=== PATIENT | male | born 1980 ===

== ENCOUNTER 2016-10-08 18:32 | Inpatient (IN) | payer MEDICAID, OTHER ==
[2016-10-08 18:49] VITALS: BMI 27.8
[2016-10-08] MEDS ORDERED: Naloxone 0.4 mg/ml Inj (Adult) IV ONE (19:15)
[2016-10-08] MEDS ORDERED: Sodium Chloride 0.9% 1,000 ML IV ONE (19:15)
[2016-10-08 19:47] LABS: BASO # 0.1 K/uL (0.0-0.2); BASO % 0.5 % (0.0-2.0); EOS # 0.2 K/uL (0.0-0.7); EOS % 1.8 % (0.0-4.0); HEMATOCRIT 40.1 % (35.0-51.0); LYMPH # 2.4 K/uL (1.0-4.3); LYMPH % 23.5 % (20.0-40.0); MEAN CELL VOLUME 89.2 fL (80.0-94.0); MEAN CORPUSCULAR HEMOGLOBIN 29.7 pg (27.0-31.0); MEAN CORPUSCULAR HGB CONC 33.3 g/dL (33.0-37.0); MEAN PLATELET VOLUME 9.2 fL (7.2-11.7); MONO # 0.7 K/uL (0.0-0.8); MONO % 6.8 % (0.0-10.0); RED CELL DISTRIBUTION WIDTH 12.3 % (11.5-14.5); WHITE BLOOD COUNT 10.2 K/uL (4.8-10.8)
[2016-10-08 19:55] LABS: CHLORIDE 93 mmol/L (98-107); SODIUM 134 mmol/L (132-148)
[2016-10-08 19:56] LABS: POTASSIUM 3.6 mmol/L (3.6-5.2)
[2016-10-08 19:57] LABS: GFR AFRICAN-AMERICAN > 60
[2016-10-08 19:58] LABS: ALB/GLOB RATIO 1.4 (1.0-2.1); ALKALINE PHOSPHATASE 70 U/L (38-126); ALT/SGPT 33 U/L (21-72); AST/SGOT 26 U/L (17-59); BILIRUBIN,TOTAL 0.6 mg/dL (0.2-1.3); BLOOD UREA NITROGEN 10 mg/dL (9-20); CALCIUM 8.4 mg/dl (8.6-10.4); CARBON DIOXIDE 32 mmol/L (22-30); GLUCOSE,RANDOM 109 mg/dL (75-110); TOTAL PROTEIN 7.6 g/dL (6.3-8.3)
[2016-10-08 19:59] LABS: ALCOHOL SERUM < 10 mg/dl (0-10)
--- NOTE | 2016-10-08 21:54 | C.PDOC ---
Time Seen by Provider: 10/08/16 19:03 Chief Complaint (Nursing): Psychiatric Evaluation History Per: Patient, Family (Fiance) Onset/Duration Of Symptoms: Days (4) Current Symptoms Are (Timing): Still Present Suicide/Self Injury Attempted (Context): Ingestion Ingestion Of Substance: Percocet. Flexeril. Xanax. Heroin. Modifying Factor(s): Narcotics Severity: Moderate Associated Symptoms: Depression Additional History Per: Prior Records, Girlfriend Past Medical History Reviewed: Historical Data, Nursing Documentation, Vital Signs Vital Signs: Last Vital Signs Temp 98.8 F 10/09/16 00:38 Pulse 88 10/09/16 00:38 Resp 20 10/09/16 00:38 BP 151/85 H 10/09/16 00:38 Pulse Ox 99 10/09/16 00:38 - Medical History PMH: Arthritis, Asthma, Bipolar Disorder - [employer] Procedures DETOXIFICATION SERVICES FOR SUBSTANCE ABUSE TREATMENT (04/22/16) Family History: States: Unknown Family Hx - Social History Hx Alcohol Use: No Hx Substance Use: Yes (Snorts Heroin.) - Immunization History Hx Tetanus Toxoid Vaccination: Yes Hx Influenza Vaccination: No Hx Pneumococcal Vaccination: No Review Of Systems Except As Marked, All Systems Reviewed And Found Negative. Constitutional: Negative for: Fever Cardiovascular: Negative for: Chest Pain Respiratory: Negative for: Shortness of Breath Gastrointestinal: Positive for: Nausea, Vomiting (?) Musculoskeletal: Negative for: Neck Pain Skin: Negative for: Rash Neurological: Negative for: Weakness, Numbness, Seizures Physical Exam - Physical Exam Appears: No Acute Distress, Other (Appears drowsy and intoxicated) Skin: Normal Color, Warm, Dry, No Rash Head: Atraumatic, Normacephalic Eye(s): bilateral: PERRL (but small), EOMI Neck: Normal ROM, No Midline Cervical Tenderness, No Step Off Deformity, Supple Chest: Symmetrical, No Deformity Cardiovascular: Rhythm Regular Respiratory: Normal Breath Sounds, No Accessory Muscle Use Gastrointestinal/Abdominal: Soft Extremity: Normal ROM, No Deformity Neurological/Psych: Eyes Open With Command, Slow To Respond With Command Gait: Unable To Assess ED Course And Treatment - Laboratory Results Result Diagrams: 10/08/16 19:40 10/08/16 19:40 Lab Interpretation: No Acute Changes ECG: Interpreted By Me, Viewed By Me ECG Rhythm: Sinus Rhythm, Nonspecific Changes ECG Interpretation: No Acute Changes Rate From EC O2 Sat by Pulse Oximetry: 99 Pulse Ox Interpretation: Normal - CT Scan/US CT head Other Rad Studies (CT/US): Read By Radiologist, Radiology Report Reviewed CT/US Interpretation: No acute findings. Progress Note: Pt d/w Tori at [facility]. States that pt can be medically cleared for psychiatric admission. Reassessment Condition: Improved Disposition Counseled Patient/Family Regarding: Studies Performed, Diagnosis - Disposition Disposition: HOSPITALIZED Disposition Time: 00:46 Condition: STABLE - Clinical Impression Clinical Impression: Depression, Drug abuse Decision To Admit - Pt Status Changed To: Hospital Disposition Of: Inpatient - Admit Certification Admit to Inpatient:: After my assessment, the patient will require hospitalization for at least two midnights. This is because of the severity of symptoms shown, intensity of services needed, and/or the medical risk in this patient being treated as an outpatient. - InPatient: Physician Admission Certification: I certify that this patient requires 2 or more midnights of care for the following reason:: Psych - . Bed Request Type: Psychiatry Admitting Physician: Remberto Klein Patient Diagnosis: Depression, Drug abuse
[2016-10-08 23:16] LABS: RBC URINE 2 /hpf (0-3); URINE BILIRUBIN NEGATIVE (NEGATIVE); URINE BLOOD NEGATIVE (NEGATIVE); URINE COLOR Yellow (YELLOW); URINE GLUCOSE (UA) NORMAL (Normal); URINE KETONE NEGATIVE (NEGATIVE); URINE LEUKOCYTE ESTERASE NEG Leu/uL (Negative); URINE PROTEIN NEGATIVE (NEGATIVE); URINE UROBILINOGEN NORMAL mg/dL (0.2-1.0); WBC URINE 1 /hpf (0-5)
[2016-10-09 01:38] VITALS: TEMP 98.1; O2SAT 98
--- NOTE | 2016-10-09 09:00 | CT ---
PROCEDURE: CT HEAD WITHOUT CONTRAST. HISTORY: AMS COMPARISON: None available. TECHNIQUE: Axial computed tomography images were obtained through the head/brain without intravenous contrast. Radiation dose: Total exam DLP = 931.30 mGy-cm. This CT exam was performed using one or more of the following dose reduction techniques: Automated exposure control, adjustment of the mA and/or kV according to patient size, and/or use of iterative reconstruction technique. FINDINGS: HEMORRHAGE: No intracranial hemorrhage. BRAIN: No mass effect or edema. No atrophy or chronic microvascular ischemic changes. VENTRICLES: Unremarkable. No hydrocephalus. CALVARIUM: Unremarkable. PARANASAL SINUSES: Mild chronic ethmoid sinusitis. MASTOID AIR CELLS: Unremarkable as visualized. No inflammatory changes. OTHER FINDINGS: None. IMPRESSION: No intracranial mass, hemorrhage or evidence of acute infarct. Mild chronic ethmoid sinusitis. Preliminary interpretation of this examination was reported by [facility] at 8:28 p.m. on 10/08/2016. There is concurrence of this report with the preliminary interpretation.
[2016-10-09] MEDS ORDERED: Benzocaine/Menthol (Cepacol) Lozenge PO PRN (10:34)
--- NOTE | 2016-10-09 10:38 | PCM.PSYCH ---
Initial Psychiatric Evaluation - Initial Psychiatric Evaluation Type of Admission: Voluntary Legal Status: Capacity Chief Complaint (in patient's own words): I came in to get help History of Present Illness and Precipitating Events: This is a 35 yo man, who currently lives alone and works full-time, BIB "girlfriend" reportedly secondary to "unknown substance use" and recent thoughts of suicide. Pt reports the following: "I took heroin, Xanax, Percocet, and apparently a few other opioids;" I'm very depressed;" I figured that taking all of that stuff would put me away;" Maybe just ;" Pt was ambiguous in regards to actually having suicide intent, describing the above odd as a way of "escaping" from his problems but also as a way of "giving your life away". Pt reports of being depressed for the past month. Patient reports that he completed a detox at [facility] last year. As per the patient he relapsed on heroin and, xanax and percoects 3 months go. Patient reports of using 20 bags of heroin on a daily basis along with 4-6 mg of Xanax and some Percocets. Yesterday he abused 20 bags with 4 mg of Xanax, became increasingly depressed and developed suicidal ideation so came to the hospital. Patient reports depressed mood and at times feelings of hopelessness and helplessness. He reports recent stresses like, younger brother recently in a MVA; And several financial stressors: unpaid bills and difficulty supporting his children financially; Pt reports feelings of anhedonia, stating: "It really has me bummed out;" It's overwhelming"; Pt denied having a prior hx of suicide attempts, but was treated psychiatrically on an outpt basis at the age of "[age]" following the divorce of his parents; Pt was placed in a "mcc" at age 11 secondary to run away behavior; Pt has minimal contact with his family and states he currently lives alone; He denies any manic or psychotic symptoms. he reports withdrawal symptom nausea, joint pains, abdominal cramps, diarrhea, sweating, headaches and anxiety. past medical history Hypertension Current Medications: Active Medications Generic Name Dose Route Start Last Admin Trade Name Freq PRN Reason Stop Dose Admin Acetaminophen 650 mg 10/09/16 10:34 Tylenol 325mg Tab PO Q4H PRN Fever greater than 101 F Benzocaine/Menthol 1 cruzito 10/09/16 10:34 Cepacol Sore Throat PO QID PRN Sore Throat Clonidine HCl 0.1 mg 10/09/16 10:34 Catapres PO Q8 PRN COWS Score More or Equal to 5 Loperamide HCl 2 mg 10/09/16 10:34 Imodium PO Q8 PRN Diarrhea Methadone HCl 20 mg 10/09/16 10:36 Methadone PO 10/09/16 10:37 STAT STA Nicotine 1 patch 10/09/16 10:45 Nicoderm Cq TD DAILY YUMIKO Ondansetron HCl 4 mg 10/09/16 10:34 Zofran Tab PO Q8 PRN Nausea/Vomiting Pseudoephedrine HCl 60 mg 10/09/16 10:34 Sudafed Tab PO QID PRN Nasal/Sinus Congestion Past Psychiatric History - Past Psychiatric History Previous Treatment History: Inpatient Pertinent Medical Hx (Current Medical&Sleep Prob, Allergies): Allergies Allergy/AdvReac Type Severity Reaction Status Date / Time Penicillins Allergy Verified 04/22/16 19:11 Gabapentin [Neurontin] 300 mg PO TID #90 cap 04/26/16 traZODone [Desyrel] 100 mg PO HS PRN #30 tab 04/26/16 Xanax 1 tab PO DAILY 10/08/16 oxyCODONE/Acetaminophen [Percocet 5/325 mg Tab] 1 tab PO TID 10/08/16 Review of Systems - Review of Systems All systems: reviewed and no additional remarkable complaints except - Psychiatric Psychiatric: Anxiety, Behavioral Changes, Depression, Irritability, Suicidal Ideation Mental Status Examination - Personal Presentation Personal Presentation: Looks stated age - Affect Affect: Constricted, Depressed - Motor Activity Motor Activity: Calm - Reliability in Providing Information Reliability in Providing Information: Good - Speech Speech: Organized - Mood Mood: Depressed, Anxious - Formal Thought Process Formal Thought Process: No Impairment - Obsessions/Compulsions Obsessions: No Compulsions: No - Cognitive Functions Orientation: Person, Place, Situation, Time Sensorium: Alert Attention/Concentration: Attentive Abstract Thinking: [place] Estimate of Intelligence: Below average Judgement: Imparied, as evidence by: Poor judgement, Imparied, as evidence by: Lack of insight into illness - Risk Risk: Suicidal, Withdrawal, Diminished functioning - Strength & Assets Inventory Strength & Assets Inventory: Cooperative DSM 5 DX - DSM 5 DSM 5 Diagnosis: Major depressive disorder single episode severe without psychotic features Opioid use disorder severe Opioid withdrawal Sedative/hypnotic use disorder severe Sedative/hypnotic withdrawal uncomplicated Nicotine use disorder severe - Recommended/Plan of Treatment Treatment Recommendations and Plan of Treatment: Major depressive disorder single episode severe without psychotic features CBT Psychoeducation Supportive therapy, group therapy, individual therapy Zoloft 25 mg by mouth daily Neurontin 100 mg by mouth 3 times a day Trazodone 50 mg by mouth daily at bedtime Opioid use disorder severe CBT Psychoeducation Supportive therapy, individual therapy Use FL for abstinence Opioid withdrawal CBT Psychoeducation Supportive therapy, individual therapy Clonidine when necessary Methadone taper Sedative/hypnotic use disorder severe CBT Psychoeducation Supportive therapy, individual therapy Use FL for abstinence Sedative/hypnotic withdrawal uncomplicated CBT Psychoeducation Supportive therapy, individual therapy Ativan when necessary Nicotine use disorder severe nicotine patch Hypertension monitor signs and symptoms - Smoking Cessation Smoking Cessation Initiated: Yes
[2016-10-10 09:09] VITALS: BP 110/69; PULSE 77; RESP 18
--- NOTE | 2016-10-10 10:05 | PCM.PYCHDC ---
Mental Status Examination - Mental Status Examination Orientation: Person, Place, Situation, Time Memory: Intact Mood: Neutral Affect: Constricted Speech: Soft Attention: WNL Concentration: WNL Association: WNL Fund of Knowledge: WNL Formal Thought Process: No Impairment Description of patient's judgement and insight: good, fair Psychotic Thoughts and Behaviors: denies any AVH Suicidal Ideation: No Current Homicidal Ideation?: No Discharge Summary - Discharge Note Reason for Hospitalization: This is a 35 yo man, who currently lives alone and works full-time, BIB "girlfriend" reportedly secondary to "unknown substance use" and recent thoughts of suicide. Pt reports the following: "I took heroin, Xanax, Percocet, and apparently a few other opioids;" I'm very depressed;" I figured that taking all of that stuff would put me away;" Maybe just ;" Pt was ambiguous in regards to actually having suicide intent, describing the above odd as a way of "escaping" from his problems but also as a way of "giving your life away". Pt reports of being depressed for the past month. Patient reports that he completed a detox at [facility] last year. As per the patient he relapsed on heroin and, xanax and percoects 3 months go. Patient reports of using 20 bags of heroin on a daily basis along with 4-6 mg of Xanax and some Percocets. Yesterday he abused 20 bags with 4 mg of Xanax, became increasingly depressed and developed suicidal ideation so came to the hospital. Patient reports depressed mood and at times feelings of hopelessness and helplessness. He reports recent stresses like, younger brother recently in a MVA; And several financial stressors: unpaid bills and difficulty supporting his children financially; Pt reports feelings of anhedonia, stating: "It really has me bummed out;" It's overwhelming"; Pt denied having a prior hx of suicide attempts, but was treated psychiatrically on an outpt basis at the age of "6 or 7" following the divorce of his parents; Pt was placed in a "half-way" at age 11 secondary to run away behavior; Pt has minimal contact with his family and states he currently lives alone; He denies any manic or psychotic symptoms. he reports withdrawal symptom nausea, joint pains, abdominal cramps, diarrhea, sweating, headaches and anxiety. Consultations:: List each consultation separately and include: 1. Reason for request. 2. Findings. 3. Follow-up Summary of Hospital Course include:: 1. Description of specific treatment plan utilized for patients during their course of treatmen. 2. Summarize the time- course for resolution of acute symptoms and/or regressed behaviors. 3. Describe issues identified and worked on during hospitalization. 4. Describe medication utilized. 5. Describe medical problems identified and treated. 6. Reassessment of suicide risk Summary of Hospital Course: During the course of his stay, patient (pt) started progressively improving and he no longer remained irritable, depressed, and suicidal. His mood was improved and he started attending groups and meetings and started socializing. He withdrawal symptoms were getting better but then he received a phone call from brother that he is in process of eviction from the apartment because of non payment of rent. Also, he didnt inform his boss that he is in the hospital so he can lose his job. Pt requested to leave today. Patient denied any feelings of hopelessness, helplessness, and worthlessness, denied any problem with the sleep or appetite, denied suicidal ideation or homicidal ideation. Pt denied any auditory or visual hallucinations. Some changes were made in his current medications and patient was discharged on following medications. He tolerated these medications very well and denied any side effects. s - Final Diagnosis (DSM 5) Condition upon Discharge: STABLE DSM 5: Major depressive disorder single episode severe without psychotic features Opioid use disorder severe Opioid withdrawal Sedative/hypnotic use disorder severe Sedative/hypnotic withdrawal uncomplicated Nicotine use disorder severe Disposition: HOME/ ROUTINE Follow-up Treatment Plan: Education: Pt was educated and counseled about the risks and benefits of taking and not taking medications. Pt was educated and counseled about the risks of drinking and abusing drugs. Pt was educated and counseled to go to the ER or call 911 if pt develop suicidal ideation or homicidal ideation, worsening of symptoms or severe side effects of the meds. Prescriptions/Medication Reconciliation: Gabapentin [Neurontin] 100 mg PO TID 14 Days Sertraline [Zoloft] 25 mg PO DAILY 14 Days - Smoking Cessation Smoking Cessation Medication prescribed: No - Antipsychotic Medications Pt discharged on 2 or more routine antipsychotic medications: No
--- NOTE | 2016-10-15 19:21 | CARD ---
APPROVED REPORT EKG Measurement Heart [id number] <Conclusion> Normal sinus rhythm Rightward axis ST & T wave abnormality, consider inferior ischemia Abnormal ECG
== END 2016-10-10 10:20 | disposition home or self-care (01) | DRG 430 ==
LOC: C.ER 18:32 → C.5E 10-09 00:51
PROC: HZ52ZZZ Individual Psychotherapy for Substance Abuse Treatment, Cognitive-Behavioral (ICD-10-PCS; principal; 2016-10-09)
PROC: HZ2ZZZZ Detoxification Services for Substance Abuse Treatment (ICD-10-PCS; 2016-10-09)
PROC: HZ59ZZZ Individual Psychotherapy for Substance Abuse Treatment, Supportive (ICD-10-PCS; 2016-10-09)
DX: F32.2 Major depressive disorder, single episode, severe without psychotic features (principal); I10 Essential (primary) hypertension; F11.23 Opioid dependence with withdrawal; F13.239 Sedative, hypnotic or anxiolytic dependence with withdrawal, unspecified; J45.909 Unspecified asthma, uncomplicated; F17.210 Nicotine dependence, cigarettes, uncomplicated

== ENCOUNTER 2017-01-14 08:10 | Inpatient (IN) | payer MEDICAID, OTHER ==
[2017-01-14 08:14] VITALS: BMI 25.7
[2017-01-14 08:54] LABS: BASO # 0.1 K/uL (0.0-0.2); BASO % 0.7 % (0.0-2.0); EOS # 0.1 K/uL (0.0-0.7); HEMATOCRIT 41.7 % (35.0-51.0); LYMPH # 1.8 K/uL (1.0-4.3); LYMPH % 15.2 % (20.0-40.0); MEAN CELL VOLUME 88.3 fL (80.0-94.0); MEAN CORPUSCULAR HEMOGLOBIN 29.6 pg (27.0-31.0); MEAN CORPUSCULAR HGB CONC 33.5 g/dL (33.0-37.0); MONO # 0.5 K/uL (0.0-0.8); MONO % 4.5 % (0.0-10.0); RED CELL DISTRIBUTION WIDTH 12.8 % (11.5-14.5); WHITE BLOOD COUNT 11.7 K/uL (4.8-10.8)
[2017-01-14 09:08] LABS: CHLORIDE 104 mmol/L (98-107)
[2017-01-14 09:09] LABS: POTASSIUM 3.6 mmol/L (3.6-5.2); SODIUM 142 mmol/L (132-148)
[2017-01-14 09:11] LABS: BILIRUBIN,TOTAL 0.8 mg/dL (0.2-1.3); GFR AFRICAN-AMERICAN > 60
[2017-01-14 09:12] LABS: ALB/GLOB RATIO 1.3 (1.0-2.1); ALCOHOL SERUM < 10 mg/dl (0-10); ALKALINE PHOSPHATASE 83 U/L (38-126); ALT/SGPT 32 U/L (21-72); AST/SGOT 20 U/L (17-59); BLOOD UREA NITROGEN 13 mg/dL (9-20); CALCIUM 9.4 mg/dl (8.6-10.4); CARBON DIOXIDE 26 mmol/L (22-30); GLUCOSE,RANDOM 120 mg/dL (75-110); TOTAL PROTEIN 7.3 g/dL (6.3-8.3)
--- NOTE | 2017-01-14 09:12 | C.PDOC ---
History Of Present Illness Patient is a 36 y/o male presents to the ED requesting heroin detox. Notes using heroin intranasally. Last use was yesterday. Otherwise, denies any SI, HI , chest pain, shortness of breath, headache, fever, chills, cough, nausea, vomiting, diarrhea, abdominal pain, dizziness, or any other physical complaints at this time. Time Seen by Provider: 01/14/17 08:33 Chief Complaint (Nursing): Substance Abuse History Per: Patient History/Exam Limitations: no limitations Onset/Duration Of Symptoms: Gradual Current Symptoms Are (Timing): Still Present Suicide/Self Injury Attempted (Context): None Modifying Factor(s): Other (heroin) Severity: None Pain Scale Rating Of: 0 Associated Symptoms: denies: Suicidal Thoughts, Suicidal Plan Involuntary Hold By: None Recent travel outside of the [place]: No Additional History Per: Patient Past Medical History Reviewed: Historical Data, Nursing Documentation, Vital Signs Vital Signs: Last Vital Signs Temp 98.4 F 01/14/17 08:14 Pulse 97 H 01/14/17 08:14 Resp 18 01/14/17 08:14 BP 106/75 01/14/17 08:14 Pulse Ox 98 01/14/17 09:14 - Medical History PMH: Arthritis, Asthma, Bipolar Disorder, Diabetes, HTN Denies: Hepatitis, HIV, Seizures, Sexually Transmitted Disease - [facility] Procedures DETOXIFICATION SERVICES FOR SUBSTANCE ABUSE TREATMENT (10/09/16) INDIV PSYCHOTHERAPY FOR SUBSTANCE ABUSE TREATMENT, SUPPORT (10/09/16) INDIV PSYCHOTHERAPY FOR SUBSTANCE ABUSE, COGNITIV BEHAVIORAL (10/09/16) Family History: States: Unknown Family Hx - Social History Hx Alcohol Use: Yes Hx Substance Use: Yes - Immunization History Hx Tetanus Toxoid Vaccination: Yes Hx Influenza Vaccination: No Hx Pneumococcal Vaccination: No Review Of Systems Except As Marked, All Systems Reviewed And Found Negative. Constitutional: Negative for: Fever, Chills Cardiovascular: Negative for: Chest Pain, Palpitations Respiratory: Negative for: Cough, Shortness of Breath Gastrointestinal: Negative for: Nausea, Vomiting, Abdominal Pain Musculoskeletal: Negative for: Neck Pain, Back Pain Skin: Negative for: Rash, Bruising Neurological: Negative for: Headache, Dizziness Psych: Negative for: Suicidal ideation Physical Exam - Physical Exam Additional Physical Exam Comments: Constitutional: No acute distress. Head: Normocephalic. Atraumatic. Eyes: PERRL. ENT: Moist mucous membranes. Neck: Supple. Cardiovascular: Regular rate. Radial pulses 2+ bilaterally. Chest: No tenderness. Respiratory: Clear to auscultation bilaterally. GI: Soft. Nontender. Nondistended. Back: No CVA tenderness. Musculoskeletal: No tenderness or swelling of extremities. Skin: No rash. Neurologic: Alert, no focal deficit. ED Course And Treatment - Laboratory Results Result Diagrams: 01/14/17 08:47 01/14/17 08:47 O2 Sat by Pulse Oximetry: 98 (RA) Pulse Ox Interpretation: Normal Medical Decision Making Medical Decision Making: Plan: * Blood work * Urinalysis * Crisis evaluation Progress note: On re-evaluation, patient is resting comfortably, no acute distress. No physical complaints at this time. Pending crisis evaluation. Medically cleared and accepted for Detox. Disposition Discussed With Dr.: Sanjana Marino Doctor Will See Patient In The: Hospital - Disposition Disposition: HOSPITALIZED Disposition Time: 11:00 Condition: FAIR Forms: [employer] [facility] (Swazi) - Clinical Impression Clinical Impression: Opioid use disorder, severe, dependence - Scribe Statement The provider has reviewed the documentation as recorded by the Aureliano Barros Provider Attestation: All medical record entries made by the Aureliano were at my direction and personally dictated by me. I have reviewed the chart and agree that the record accurately reflects my personal performance of the history, physical exam, medical decision making, and the department course for this patient. I have also personally directed, reviewed, and agree with the discharge instructions and disposition.
[2017-01-14 09:19] LABS: RBC URINE 2 /hpf (0-3); URINE BILIRUBIN NEGATIVE (NEGATIVE); URINE BLOOD NEGATIVE (NEGATIVE); URINE COLOR Yellow (YELLOW); URINE GLUCOSE (UA) NORMAL (Normal); URINE KETONE NEGATIVE (NEGATIVE); URINE LEUKOCYTE ESTERASE NEG Leu/uL (Negative); URINE PROTEIN NEGATIVE (NEGATIVE); URINE UROBILINOGEN NORMAL mg/dL (0.2-1.0); WBC URINE < 1 /hpf (0-5)
[2017-01-14] MEDS ORDERED: Buprenorphine Hydrochloride 2 mg SL ONE ×2 (12:55→14:00)
[2017-01-14] MEDS ORDERED: Aluminum Hydroxide/Magnesium Hydroxide Susp (30 mL) PO PRN (12:55)
--- NOTE | 2017-01-14 12:57 | PCM.PSYCH ---
Initial Psychiatric Evaluation - Initial Psychiatric Evaluation Type of Admission: Voluntary Legal Status: Capacity Chief Complaint (in patient's own words): "I need detox" History of Present Illness and Precipitating Events: Pt is a 36 y.o. male admitted for heroin use. Pt reports he relapsed and started using 10-15 bags of heroin per day intranasally for the last 5 months, last use yesterday at 10 am and used 5 bags. Pt denies SI, HI. Urine drug screen was positive for opiates, benzodiazepines and cannabinoids. Pt reports last use of Xanax 5 days ago. Pt denies fall and seizure risk. Psychiatric Hx: Bipolar d/o (no meds) Other Medical Hx: Arthritis, Asthma, Diabetes, HTN Social Hx: Alcohol and Substance abuse Famiy Psych Hx: Unknown Current Medications: Active Medications Generic Name Dose Route Start Last Admin Trade Name Freq PRN Reason Stop Dose Admin Al Hydrox/Mg Hydrox/Simethicone 30 ml 01/14/17 12:55 Maalox 30 Ml PO TID PRN Indigestion / Heartburn Buprenorphine HCl 2 mg 01/14/17 12:55 Subutex SL 01/14/17 12:56 ONCE ONE Clonidine HCl 0.1 mg 01/14/17 12:55 Catapres PO Q8 PRN COWS Score More or Equal to 5 Loperamide HCl 2 mg 01/14/17 12:55 Imodium PO Q8 PRN Diarrhea Ondansetron HCl 4 mg 01/14/17 12:55 Zofran Tab PO Q8 PRN Nausea/Vomiting Past Psychiatric History - Past Psychiatric History Pertinent Medical Hx (Current Medical&Sleep Prob, Allergies): Allergies Allergy/AdvReac Type Severity Reaction Status Date / Time peanut Allergy Verified 01/14/17 08:13 Penicillins Allergy Verified 01/14/17 08:12 seafood Allergy Uncoded 01/14/17 08:13 No Known Home Med 01/14/17 Review of Systems - Neurological Neurological: UNREMARKABLE - Psychiatric Psychiatric: As Per HPI. absent: Homicidal Ideation, Suicidal Ideation Mental Status Examination - Personal Presentation Personal Presentation: Looks stated age - Affect Affect: Blunted - Motor Activity Motor Activity: Calm - Reliability in Providing Information Reliability in Providing Information: Good DSM 5 DX - DSM 5 DSM 5 Diagnosis: Opioid use disorder, Severe Opioid withdrawal - Recommended/Plan of Treatment Treatment Recommendations and Plan of Treatment: Al Hydrox/Mg Hydrox/Simethicone Clonidine Hcl Hydroxyzine Hcl Ibuprofen Loperamide Hcl Ondansetron Hcl Trazodone Hcl As needed meds and vitamins Attend groups and activities VT for abstinence and CBT for relapse prevention Support and psychoeducation Consider and encourage MAT Refer to after care 33 mins Projected ELOS: 5-6 days Prognosis: Good with tx
--- NOTE | 2017-01-14 13:25 | PCM.BM ---
<Yomaira Liu - Last Filed: 01/14/17 13:23> Treatment Plan Problems - Problems identified on initial assessmt Opiate Dependence Date Initiated: 01/14/17 Assessment reference: NA Status: Active Treatment assets and liabiliti Patient Assests: adapts well, cooperative, ADL independent, negotiates basic needs Patient Liabilities: substance abuse - Milieu Protocol Maintain good personal hygiene: daily Encourage regular showers, daily Remind patient to perform daily oral care, daily Assist patient to perform ADL's Conduct patient checks and document Observation sheet: Q15 minutes Maintain personal safety: every shift Educate patient to report safety concerns to staff, every shift Monitor environment for contraband/sharps Medication safety: Monitor for expected outcome, potential side effects: every shift, Assess barriers to learning: every shift, Assess readiness for medication education: every shift <Doris Bell - Last Filed: 01/15/17 08:32> Family Contact Family involvement: Family/SO is involved Family contact: Patient agrees to contact, Family has been contacted by patient - Goals for Treatment Patient goals for treatment: Transition from detox to [facility]. Discharge/Continuing Care - Education Needs Education Needs: Patient Medication, Patient Diagnosis/Disease Process, Patient Coping Skills, Patient Anger Management skills, Patient Placement options, Patient Community resources - Discharge Discharge Criteria: Free of agitation, Normal sleep pattern, No longer exhibiting s/s of withdrawal, Reduction of target symptoms Discharge to:: Substance Abuse Rehab - Treatment Team Participation Patient/Family/SO Statement: 01/15/17 08:33 "I wanna either go to [facility] or to [facility]. I've been to both places before and they work for me". Discussed with Family/SO: No Was Patient/Family/SO present at Treatment Team Meeting: Yes <Sanjana Marino - Last Filed: 01/15/17 10:37> - Diagnosis (1) Opioid use disorder, severe, dependence Status: Acute Interventions: 01/15/17 10:37 * Assess 7x/week regarding severity of withdrawal * Educate regarding risks, benefits, side effects and alternatives of medications * Use Motivational Interviewing for abstinence * Use CBT for relapse prevention * Medication management for withdrawal symptoms * Encourage medication assisted treatment *
[2017-01-15] MEDS: Buprenorphine Hydrochloride 2 mg SL SCH (09:15)
--- NOTE | 2017-01-15 13:53 | PCM.PYCHPN ---
Psychiatric Progress Note - Psychiatric Progress Note Patient seen today, length of contact: 16 min Patient Chief Complaint: I am not feeling good.' Problems Identified/Issues Discussed: Patient seen and evaluated, chart reviewed and discussed with the nurse. Patient reports irritability, anxiety and reports withdrawal symptoms including nausea, diarrhoea, cramps, sweating, joint pains and headaches. Patient reports irritable mood but denies any suicidal ideation or homicidal ideation. He denies any auditory or visual hallucinations. He started tolerating the withdrawal medications and denies any side effects. Supportive therapy and psychoeducation were given. Medication Change: Yes (subutex taper) Medical Record Reviewed: Yes Mental Status Examination - Cognitive Function Orientation: Person, Place, Situation, Time Memory: Intact Attention: WNL Concentration: Poor Association: WNL Fund of Knowledge: Poor - Mood Mood: Anxious - Affect Affect: Blunted - Speech Speech: Soft - Formal Thought Process Formal Thought Process: No Impairment - Suicidal Ideation Suicidal Ideation: No - Homicidal Ideation Homicidal Ideation: No Goal/Treatment Plan - Goal/Treatment Plan Need for Continued Stay: Discharge may exacerbated symptoms, Severe functional impairment Progress Toward Problem(s) and Goals/Treatment Plan: Opioid use disorder, Severe Opioid withdrawal Al Hydrox/Mg Hydrox/Simethicone Clonidine Hcl Hydroxyzine Hcl Ibuprofen Loperamide Hcl Ondansetron Hcl Trazodone Hcl As needed meds and vitamins Attend groups and activities ND for abstinence and CBT for relapse prevention Support and psychoeducation Consider and encourage MAT Refer to after care - Smoking Cessation Smoking Cessation Initiated: No
[2017-01-16] MEDS: Buprenorphine Hydrochloride 2 mg SL SCH (09:05)
[2017-01-16 13:23] VITALS: RESP 18
--- NOTE | 2017-01-16 17:32 | PCM.PYCHPN ---
Psychiatric Progress Note - Psychiatric Progress Note Patient seen today, length of contact: 15 minutes Patient Chief Complaint: I was little restless during the night Problems Identified/Issues Discussed: Patient seen. Chart reviewed. Case discussed with the staff. Issues related to illness and treatment were discussed with the patient. Reported compliant with treatment with no adverse affects. Tolerating treatment very well. Patient reported that he was restless at night. Patient wanted to go to rehabilitation in [place] tomorrow without completing his detox. According to patient rehabilitation in [place] accepts patient's only during weekdays and not on weekend. Education provided to the patient about completion of treatment and detox. Even the patient's detox will finish on Friday, will discharge patient on 01/20/2017. Patient agreed. At the time of evaluation, patient was awake alert oriented 3, had no delusions, no auditory visual hallucinations, no suicidal ideations or homicidal ideations. Medical Problems: None reported Diagnostic Results: Reviewed DSM 5 Symptoms Update: Improving with treatment Medication Change: No Medical Record Reviewed: Yes Mental Status Examination - Cognitive Function Orientation: Person, Place, Situation, Time Memory: Intact Attention: WNL Concentration: WNL Association: [facility] Fund of Knowledge: [facility] Decription of patient's judgement and insights: Fair - Mood Mood: Anxious - Affect Affect: Other (Appropriate) - Speech Speech: Appropriate - Formal Thought Process Formal Thought Process: No Impairment - Suicidal Ideation Suicidal Ideation: No - Homicidal Ideation Homicidal Ideation: No Goal/Treatment Plan - Goal/Treatment Plan Need for Continued Stay: Remain at risks for inpatient hospitalization, Discharge may exacerbated symptoms, Severe functional impairment Progress Toward Problem(s) and Goals/Treatment Plan: Patient education Supportive therapy Continue treatment as before Estimated Date of D/C: 01/20/17 - Smoking Cessation Smoking Cessation Initiated: Yes
[2017-01-17] MEDS: Buprenorphine Hydrochloride 2 mg SL SCH (09:03)
[2017-01-17 10:44] VITALS: BP 117/76; PULSE 82; TEMP 98.4; O2SAT 99
--- NOTE | 2017-01-17 15:05 | PCM.PYCHDC ---
Mental Status Examination - Mental Status Examination Orientation: Person, Place, Situation, Time Memory: Intact Mood: Neutral Affect: Other (Appropriate) Speech: Appropriate Attention: WNL Concentration: WNL Association: WNL Fund of Knowledge: WNL Formal Thought Process: No Impairment Description of patient's judgement and insight: Fair Psychotic Thoughts and Behaviors: None Suicidal Ideation: No Current Homicidal Ideation?: No Discharge Summary - Discharge Note Reason for Hospitalization: Opiate use disorder Laboratory Data: Reviewed Consultations:: List each consultation separately and include: 1. Reason for request. 2. Findings. 3. Follow-up Summary of Hospital Course include:: 1. Description of specific treatment plan utilized for patients during their course of treatmen. 2. Summarize the time- course for resolution of acute symptoms and/or regressed behaviors. 3. Describe issues identified and worked on during hospitalization. 4. Describe medication utilized. 5. Describe medical problems identified and treated. 6. Reassessment of suicide risk Summary of Hospital Course: Pt is a 36 y.o. male admitted for heroin use. Pt reports he relapsed and started using 10-15 bags of heroin per day intranasally for the last 5 months, last use yesterday at 10 am and used 5 bags. Pt denies SI, HI. Urine drug screen was positive for opiates, benzodiazepines and cannabinoids. Pt reports last use of Xanax 5 days ago. Pt denies fall and seizure risk. Psychiatric Hx: Bipolar d/o (no meds) Other Medical Hx: Arthritis, Asthma, Diabetes, HTN Social Hx: Alcohol and Substance abuse Famiy Psych Hx: Unknown During his stay in the hospital patient was treated with Subutex and other when necessary medications. With the above treatment patient started feeling better. Today patient got 4 mg of Subutex, in the beginning patient was scheduled for discharge today so that patient can go to rehabilitation in [place]. Yesterday patient agreed to stay until Friday. Today patient refused to stay until Friday and wanted to leave today. The Program in [place] accepts patient's only during weekdays and not on weekend. Patient wanted to go to rehabilitation in [place] today. At the time of evaluation and discharge, patient was awake alert oriented 3, had no delusions, no auditory or visual hallucinations, no suicidal ideations or homicidal ideations. Patient was discharged in a stable condition., - Final Diagnosis (DSM 5) Condition upon Discharge: GOOD Disposition: HOME/ ROUTINE - Smoking Cessation Smoking Cessation Medication prescribed: Yes - Antipsychotic Medications Pt discharged on 2 or more routine antipsychotic medications: No
== END 2017-01-17 11:45 | disposition home or self-care (01) | DRG 745 ==
LOC: C.ER 08:10 → C.7D 11:22
PROVIDERS: ADMIT Psychiatry & Neurology Psychiatry; ATTEND Psychiatry & Neurology Psychiatry
PROC: HZ59ZZZ Individual Psychotherapy for Substance Abuse Treatment, Supportive (ICD-10-PCS; principal; 2017-01-14)
PROC: HZ56ZZZ Individual Psychotherapy for Substance Abuse Treatment, Psychoeducation (ICD-10-PCS; 2017-01-14)
PROC: HZ2ZZZZ Detoxification Services for Substance Abuse Treatment (ICD-10-PCS; 2017-01-14)
DX: F11.23 Opioid dependence with withdrawal (principal); F31.9 Bipolar disorder, unspecified; I10 Essential (primary) hypertension; E11.9 Type 2 diabetes mellitus without complications; F41.9 Anxiety disorder, unspecified; J45.909 Unspecified asthma, uncomplicated